=== PATIENT | male | born 1965 | race Two or more races ===

== ENCOUNTER 2016-08-08 10:49 | Emergency (ER) | payer MEDICARE, OTHER ==
[2016-08-08] MEDS ORDERED: SODIUM CHLORIDE 0.9% 1,000 ML IV ONE (10:58)
[2016-08-08 11:14] LABS: Basophils % (A) 1 %; CH 31.8; CHCM 33.7; Eosinophils # (A) 0.1 k/uL (0-0.7); Eosinophils % (A) 2 %; HCT 44.9 % (39.0-53.0); HDW 2.31; HGB 14.9 gm/dL (13.0-17.5); Luc # (Auto) 0.16; Luc % (Auto) 2; Lymphocytes # (A) 1.5 k/uL (1.0-4.8); Lymphocytes % (A) 22 %; MCH 31.5 pg (25.0-35.0); MCHC 33.2 g/dL (31.0-37.0); Mean Platelet Volume 7.3; Monocytes # (A) 0.2 k/uL (0-1.0); Monocytes % (A) 2 %; Neutrophils # (A) 5.1 k/uL (1.3-7.7); Neutrophils % (A) 72 %; RBC 4.72 m/uL (4.30-5.90); RDW 14.3 % (11.5-15.5); WBC 7.1 k/uL (3.8-10.6); WBC (Perox) 7.13
--- NOTE | 2016-08-08 11:18 | ED ---
General Adult HPI - General Chief complaint: Syncope Stated complaint: Fall/Syncope Time Seen by Provider: 08/08/16 10:51 Source: patient, EMS, RN notes reviewed Mode of arrival: EMS Limitations: no limitations - History of Present Illness Initial comments: This a 50-year-old male presents emergency department via EMS for fall. Patient states that he is intoxicated [place] Patient states that he does not remember striking his head though he has some swelling on the right side of his face. Patient states that he does not believe his syncopal episode. Patient denies any chest pain, shortness breath, nausea vomiting, headache, dizziness, neck pain or back pain. EMS was called because bystanders felt that he was having a seizure because he was shaking but states that he normally has shaking daily all day long secondary to psychiatric medications. Patient states that he is at his normal baseline other than being intoxicated. Patient has no upper or lower extremity pain. - Related Data Home Medications Medication Instructions Recorded Confirmed Benztropine Mesylate [Cogentin] 2 mg PO BID 07/21/14 08/08/16 Paliperidone IM [Invega Sustenna] 234 mg INJ Q28D 07/22/14 08/08/16 Cholecalciferol [Vitamin D3] 5,000 unit PO DAILY 08/08/16 08/08/16 Cyanocobalamin (Vitamin B-12) 1,000 mcg PO DAILY 08/08/16 08/08/16 [Vitamin B-12] Ferrous Sulfate [Feosol] 325 mg PO MOWEFR 08/08/16 08/08/16 Folic Acid 1 mg PO DAILY 08/08/16 08/08/16 Mirtazapine 30 mg PO HS 08/08/16 08/08/16 Naltrexone HCl [Revia] 50 mg PO DAILY 08/08/16 08/08/16 Omeprazole 20 mg PO DAILY 08/08/16 08/08/16 Allergies Allergy/AdvReac Type Severity Reaction Status Date / Time No Known Allergies Allergy Verified 08/08/16 11:17 Review of Systems ROS Statement: Those systems with pertinent positive or pertinent negative responses have been documented in the HPI. ROS Other: All systems not noted in ROS Statement are negative. Past Medical History Past Medical History: Pneumonia Additional Past Medical History / Comment(s): 08/10/14 Pt presented to [facility] ER via EMS with having been found near a restaurant confused and SOB with multiple abrasions. Pt is currently alert and oriented to person, place and time. He seems to be a fair hisorian at this time. Pt being admitted with rhabdomyolosis , multiple abrasions and hyponatremial. Other HX: Recent admission to [facility] with altered mental status, RLL pneumonia, tracheobronchitis, acute delirium alcohol withdrawal, metabolic encephalopathy, hypokalemia, hypochoremia, hypomagnesia. Additional hx of alcoholism, lumbar back pain. 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 He is on disablility. He is now living alone in an apartment. He is independent with his ADLs. He gets his medications thru [facility] and is taking them as prescribed. He uses public transportation. Smoking Status: Current some day smoker Past Alcohol Use History: Heavy, Occasional Additional Past Alcohol Use History / Comment(s): Pt states he started smoking a year ago in 2013 and does not smoke daily. He states a pack of cigarettes will last him 2-3 weeks. He states he drinks several days a week and it will be 3 big beers each time. Past Drug Use History: None Reported - Past Family History Mother Family Medical History: Cancer, Chest Pain / Angina General Exam General appearance: alert, in no apparent distress Head exam: Present: atraumatic, normocephalic, normal inspection Eye exam: Present: normal appearance, PERRL, EOMI, periorbital swelling (Mild right superior aspect), periorbital tenderness (Minimal right). Absent: scleral icterus, conjunctival injection ENT exam: Present: normal exam, normal oropharynx, mucous membranes moist Neck exam: Present: normal inspection, full ROM. Absent: tenderness, meningismus, lymphadenopathy Respiratory exam: Present: normal lung sounds bilaterally. Absent: respiratory distress, wheezes, rales, rhonchi, stridor Cardiovascular Exam: Present: normal rhythm, tachycardia, normal heart sounds. Absent: systolic murmur, diastolic murmur, rubs, gallop, clicks GI/Abdominal exam: Present: soft, normal bowel sounds. Absent: distended, tenderness, guarding, rebound, rigid Neurological exam: Present: alert, oriented X3, CN II-XII intact Skin exam: Present: warm, dry, intact, normal color. Absent: rash Course Vital Signs 08/08/16 08/08/16 10:51 11:32 Temperature 97.6 F Pulse Rate 111 H 103 H Respiratory 18 16 Rate Blood Pressure 151/80 129/78 O2 Sat by Pulse 92 L 93 L Oximetry Medical Decision Making - Medical Decision Making 50-year-old male present emergency department for fall call intoxication. Patient's CT does not show any intracranial bleed. Patient lab work essentially unremarkable. Patient does have some chronic changes of the cervical spine but no acute fracture. Patient does have a ride here and which he'll be taken home and accept responsibility of the patient. Chest x-ray shows atelectasis started changes felt not to be infiltrate patient has no fever , no white count and no cough. Return parameters were discussed. - Lab Data Result diagrams: 08/08/16 10:55 08/08/16 10:55 Lab Results 08/08/16 08/08/16 Range/Units 10:55 10:55 WBC 7.1 (3.8-10.6) k/uL RBC 4.72 (4.30-5.90) m/uL Hgb 14.9 (13.0-17.5) gm/dL Hct 44.9 (39.0-53.0) % MCV 95.0 (80.0-100.0) fL MCH 31.5 (25.0-35.0) pg MCHC 33.2 (31.0-37.0) g/dL RDW 14.3 (11.5-15.5) % Plt Count 185 (150-450) k/uL Neutrophils % 72 % Lymphocytes % 22 % Monocytes % 2 % Eosinophils % 2 % Basophils % 1 % Neutrophils # 5.1 (1.3-7.7) k/uL Lymphocytes # 1.5 (1.0-4.8) k/uL Monocytes # 0.2 (0-1.0) k/uL Eosinophils # 0.1 (0-0.7) k/uL Basophils # 0.0 (0-0.2) k/uL Sodium 140 (137-145) mmol/L Potassium 4.2 (3.5-5.1) mmol/L Chloride 102 (98-107) mmol/L Carbon Dioxide 18 L (22-30) mmol/L Anion Gap 20 mmol/L BUN 11 (9-20) mg/dL Creatinine 0.82 (0.66-1.25) mg/dL Est GFR (MDRD) Af Amer >60 (>60 ml/min/1.73 sqM) Est GFR (MDRD) Non-Af >60 (>60 ml/min/1.73 sqM) Glucose 82 (74-99) mg/dL Calcium 8.8 (8.4-10.2) mg/dL Magnesium 2.0 (1.6-2.3) mg/dL Total Bilirubin 0.9 (0.2-1.3) mg/dL AST 64 H (17-59) U/L ALT 32 (21-72) U/L Alkaline Phosphatase 106 (38-126) U/L Creatine Kinase 355 H (55-170) U/L Total Protein 8.1 (6.3-8.2) g/dL Albumin 4.6 (3.5-5.0) g/dL Lipase 178 (23-300) U/L Serum Alcohol 325 mg/dL Disposition Clinical Impression: Alcohol intoxication, Head injury, Fall Disposition: HOME SELF-CARE Condition: Stable Instructions: Alcohol Intoxication (ED) Additional Instructions: Please return to the Emergency Department if symptoms worsen or any other concerns. Time of Disposition: 12:51
[2016-08-08 11:27] LABS: ALT 32 U/L (21-72); AST 64 U/L (17-59); Alkaline Phosphatase 106 U/L (38-126); Anion Gap 20 mmol/L; Blood Urea Nitrogen 11 mg/dL (9-20); Calcium 8.8 mg/dL (8.4-10.2); Carbon Dioxide 18 mmol/L (22-30); Chloride 102 mmol/L (98-107); Creatine Kinase 355 U/L (55-170); Glucose 82 mg/dL (74-99); Non-African American GFR(MDRD) >60 (>60 ml/min/1.73 sqM); Potassium 4.2 mmol/L (3.5-5.1); Sodium 140 mmol/L (137-145); Total Bilirubin 0.9 mg/dL (0.2-1.3); Total Protein 8.1 g/dL (6.3-8.2)
[2016-08-08 11:39] LABS: Alcohol 325 mg/dL
--- NOTE | 2016-08-08 12:20 | XR ---
EXAMINATION TYPE: XR chest 2V DATE OF EXAM: 08/08/2016 12:14 PM COMPARISON: 08/10/2014 HISTORY: 50-year-old male with pain TECHNIQUE: AP and lateral views FINDINGS: The cardiomediastinal silhouette, aorta, and pulmonary vasculature are within normal limits. Some str george atelectasis in the lower lungs. Or patchy opacity along the left heart margin. No pleural effusi on. Old healed right-sided rib fracture deformity. IMPRESSION: Strandy lower lung atelectasis. More patchy opacity along the left heart margin could represent addit ional atelectasis or early infiltrate.
--- NOTE | 2016-08-08 12:44 | CT ---
EXAMINATION TYPE: CT brain radha wo con DATE OF EXAM: 08/08/2016 11:54 AM COMPARISON: NONE HISTORY: fall, contusion over right eye CT DLP: 421.1 mGycm, Automated exposure control for dose reduction was used. CONTRAST: Patient injected with 0 mL of Omnipaque 300. CT of the brain is performed utilizing 3 mm thick sections through the posterior fossa and 3 mm thick sections through the remaining calvarium. Study is performed within 24 hours of arrival to the hospital. No abnormal hyperdensity is present to suggest an acute intracranial hemorrhage. No mass lesion is evident. No acute infarcts are evident. Ventricles and sulci are appropriate for the patient age. Soft tissue swelling is over the right lateral periorbital region. Paranasal sinuses and mastoid air cells within the [id number] are clear. IMPRESSIONS: 1. Normal CT brain. 2. Soft tissue swelling right lateral periorbital region CT cervical spine. COMPARISON: None CT of the cervical spine is performed in the axial plane at 2 mm thick sections. Reconstructed image s in the coronal, and sagittal plane are reviewed on the computer. No acute fractures are evident. Vertebral body alignment is normal. Degenerative disc changes and endplate changes are present at C6-7. Some central disc bulging may be present C2-C3. Tiny left paracentral disc protrusion is present C3-4 . Vertebral body heights are preserved. No spinal canal stenosis is evident. No neural foraminal stenosis is evident. IMPRESSIONS: 1. Degenerative disc changes C6-C7 with loss of disc height and some endplate changes. 2. Central disc bulge C2-3 and tiny left paracentral disc protrusion C3-4
[2016-08-08 13:02] VITALS: BP 142/83; PULSE 100; RESP 20; TEMP 100.5
== END 2016-08-08 13:02 | disposition home or self-care (01) ==
LOC: EC 10:49
DX: S09.90XA Unspecified injury of head, initial encounter (principal); F10.129 Alcohol abuse with intoxication, unspecified; R00.0 Tachycardia, unspecified; J98.11 Atelectasis; M50.21 Other cervical disc displacement, high cervical region; F25.9 Schizoaffective disorder, unspecified; F17.210 Nicotine dependence, cigarettes, uncomplicated; Z79.891 Long term (current) use of opiate analgesic; Z79.899 Other long term (current) drug therapy; Z87.39 Personal history of other diseases of the musculoskeletal system and connective tissue; W01.0XXA Fall on same level from slipping, tripping and stumbling without subsequent striking against object, initial encounter; Y92.410 Unspecified street and highway as the place of occurrence of the external cause; Y93.01 Activity, walking, marching and hiking
CPT/HCPCS: 36415; 70450; 71020; 72125; 80053; 80320; 82550; 83690; 83735; 85025; 96360; 99285

== ENCOUNTER 2016-10-09 12:10 | Emergency (ER) | payer MEDICARE, OTHER ==
[2016-10-09 12:15] VITALS: TEMP 97.5
[2016-10-09] MEDS ORDERED: SODIUM CHLORIDE 0.9% 1,000 ML IV STA (12:16)
[2016-10-09 12:32] LABS: Basophils % (A) 0 %; CH 33.2; CHCM 34.9; Eosinophils % (A) 1 %; HCT 45.1 % (39.0-53.0); HDW 2.25; HGB 15.6 gm/dL (13.0-17.5); Luc % (Auto) 1; Lymphocytes # (A) 1.2 k/uL (1.0-4.8); Lymphocytes % (A) 17 %; MCH 32.9 pg (25.0-35.0); MCHC 34.5 g/dL (31.0-37.0); MCV 95.5 fL (80.0-100.0); Mean Platelet Volume 7.4; Monocytes # (A) 0.3 k/uL (0-1.0); Monocytes % (A) 4 %; Neutrophils # (A) 5.7 k/uL (1.3-7.7); Neutrophils % (A) 77 %; RBC 4.72 m/uL (4.30-5.90); RDW 14.2 % (11.5-15.5); WBC 7.3 k/uL (3.8-10.6); WBC (Perox) 6.66
[2016-10-09 12:53] LABS: ALT 31 U/L (21-72); AST 42 U/L (17-59); Alkaline Phosphatase 82 U/L (38-126); Anion Gap 17 mmol/L; Blood Urea Nitrogen 5 mg/dL (9-20); Calcium 8.6 mg/dL (8.4-10.2); Carbon Dioxide 16 mmol/L (22-30); Chloride 103 mmol/L (98-107); Glucose 84 mg/dL (74-99); Non-African American GFR(MDRD) >60 (>60 ml/min/1.73 sqM); Potassium 3.9 mmol/L (3.5-5.1); Sodium 136 mmol/L (137-145); Total Protein 7.5 g/dL (6.3-8.2)
[2016-10-09 12:58] LABS: Alcohol 287 mg/dL
[2016-10-09 13:01] LABS: Ammonia <9 umol/L (<30)
[2016-10-09] MEDS ORDERED: SODIUM CHLORIDE 0.9% 1,000 ML with MVI, ADULT NO.4 WITH VIT K 10 ML, THIAMINE 100 MG, F... IV ONE ×4 (13:15)
[2016-10-09 14:28] VITALS: RESP 18
--- NOTE | 2016-10-09 14:40 | ED ---
General Adult HPI - General Chief complaint: Seizure Stated complaint: ETOH Time Seen by Provider: 10/09/16 12:10 Source: patient, EMS, RN notes reviewed Mode of arrival: EMS Limitations: no limitations - History of Present Illness Initial comments: 51-year-old male presenting from home with alcohol intoxication and tremor. According to the patient's roommate the patient was found on the floor in the living room with a fine tremor. He was alert. He admitted to drinking 96 ounces of beer. Patient is a known alcoholic. EMS denies any specific trauma. Stating that the roommate believes he was lying on the floor and did not fall. Patient denies any specific complaints, denies chest pain or shortness of breath, denies abdominal pain nausea or vomiting. Denies fever or chills. Patient also has history of seizure disorder which may be related to alcohol withdrawal but is not currently on any medications. - Related Data Home Medications Medication Instructions Recorded Confirmed Benztropine Mesylate [Cogentin] 2 mg PO BID 07/21/14 10/09/16 Paliperidone IM [Invega Sustenna] 234 mg INJ Q28D 07/22/14 10/09/16 Cholecalciferol [Vitamin D3] 5,000 unit PO DAILY 08/08/16 10/09/16 Cyanocobalamin (Vitamin B-12) 1,000 mcg PO DAILY 08/08/16 10/09/16 [Vitamin B-12] Ferrous Sulfate [Feosol] 325 mg PO MOWEFR 08/08/16 10/09/16 Folic Acid 1 mg PO DAILY 08/08/16 10/09/16 Mirtazapine 30 mg PO HS 08/08/16 10/09/16 Naltrexone HCl [Revia] 50 mg PO DAILY 08/08/16 10/09/16 Omeprazole 20 mg PO DAILY 08/08/16 10/09/16 Cyanocobalamin [Vitamin B-12 1,000 mcg INJ Q7D 10/09/16 10/09/16 Injection] Allergies Allergy/AdvReac Type Severity Reaction Status Date / Time No Known Allergies Allergy Verified 10/09/16 12:37 Review of Systems ROS Statement: Those systems with pertinent positive or pertinent negative responses have been documented in the HPI. ROS Other: All systems not noted in ROS Statement are negative. Respiratory: Denies: dyspnea Cardiovascular: Denies: chest pain, palpitations Gastrointestinal: Denies: abdominal pain, nausea, vomiting Musculoskeletal: Denies: back pain Neurological: Denies: headache Past Medical History Past Medical History: Pneumonia Additional Past Medical History / Comment(s): 08/10/14 Pt presented to [facility] ER via EMS with having been found near a restaurant confused and SOB with multiple abrasions. Pt is currently alert and oriented to person, place and time. He seems to be a fair hisorian at this time. Pt being admitted with rhabdomyolosis , multiple abrasions and hyponatremial. Other HX: Recent admission to [facility] with altered mental status, RLL pneumonia, tracheobronchitis, acute delirium alcohol withdrawal, metabolic encephalopathy, hypokalemia, hypochoremia, hypomagnesia. Additional hx of alcoholism, lumbar back pain. History of Any Multi-Drug Resistant Organisms: None Reported Past Surgical History: No Surgical Hx Reported, Unable to Obtain, Orthopedic Surgery Additional Past Surgical History / Comment(s): left leg surgery for fracture repair Past Anesthesia/Blood Transfusion Reactions: No Reported Reaction Past Psychological History: Bipolar, Schizoaffective Disorder Smoking Status: Current some day smoker Past Alcohol Use History: Heavy, Occasional Past Drug Use History: None Reported - Past Family History Mother Family Medical History: Cancer, Chest Pain / Angina General Exam Limitations: no limitations General appearance: alert, in no apparent distress, appears intoxicated Head exam: Present: atraumatic, normocephalic Eye exam: Present: normal appearance, PERRL, EOMI ENT exam: Present: normal exam, mucous membranes dry Neck exam: Present: normal inspection, full ROM. Absent: tenderness, meningismus Respiratory exam: Present: normal lung sounds bilaterally. Absent: respiratory distress Cardiovascular Exam: Present: regular rate, normal rhythm GI/Abdominal exam: Present: soft. Absent: distended, tenderness Rectal exam: Present: deferred Extremities exam: Present: normal inspection, normal capillary refill Back exam: Present: normal inspection Neurological exam: Present: alert, oriented X3, CN II-XII intact. Absent: motor sensory deficit Psychiatric exam: Present: flat affect Skin exam: Present: warm, dry Course Vital Signs 10/09/16 10/09/16 10/09/16 12:11 12:52 13:55 Temperature 97.5 F L Pulse Rate 85 76 98 Respiratory 18 16 16 Rate Blood Pressure 142/92 119/63 115/65 O2 Sat by Pulse 95 96 96 Oximetry 10/09/16 10/09/16 10/09/16 14:26 15:56 18:00 Temperature Pulse Rate 96 89 101 H Respiratory 18 18 18 Rate Blood Pressure 119/60 121/66 158/77 O2 Sat by Pulse 95 97 98 Oximetry - Reevaluation(s) Reevaluation #1: 10/09/16 14:39 Patient is medically stable, currently being observed in the emergency department with acute alcohol intoxication. Reevaluation #2: 10/09/16 18:24 Patient is reevaluated at 1824. Patient is clinically sober. He is alert and oriented 3. Patient has eaten a meal while in the emergency department. He is in the toilet without difficulty. No ataxia. Medical Decision Making - Medical Decision Making 51-year-old male presenting with acute alcohol intoxication. Patient is drinking 96 ounces beer. He is a daily drinker. Patient was found on his living room floor. He denies any trauma. There was some tremor activity but the patient does have a history of left upper shoulder tremor secondary to Cogentin which he takes for his schizophrenia. Patient is reevaluated several times while in the emergency department. He is alert and oriented. At 6:20 PM the patient is clinically sober. Case was discussed with his guardian who does make his medical decisions. He is able to be discharged home to self-care. He does live alone and is independent. Laboratory studies are reviewed and are significant for mild lactic acidosis, and mild anion gap acidosis likely secondary to lactic acidosis. Patient receives IV hydration including thiamine and multiple vitamin. All the labs are reviewed and are unremarkable. At the time of evaluation patient's clinically sober. He has no complaints. He is neurologically intact. He has eaten and ambulated in the emergency department. Diagnosis: Acute alcohol intoxication Disposition: Home with outpatient primary care follow-up. - Lab Data Result diagrams: 10/09/16 12:23 10/09/16 12:23 Lab Results 10/09/16 10/09/16 10/09/16 Range/Units 12:23 12:23 12:23 WBC 7.3 (3.8-10.6) k/uL RBC 4.72 (4.30-5.90) m/uL Hgb 15.6 (13.0-17.5) gm/dL Hct 45.1 (39.0-53.0) % MCV 95.5 (80.0-100.0) fL MCH 32.9 (25.0-35.0) pg MCHC 34.5 (31.0-37.0) g/dL RDW 14.2 (11.5-15.5) % Plt Count 193 (150-450) k/uL Neutrophils % 77 % Lymphocytes % 17 % Monocytes % 4 % Eosinophils % 1 % Basophils % 0 % Neutrophils # 5.7 (1.3-7.7) k/uL Lymphocytes # 1.2 (1.0-4.8) k/uL Monocytes # 0.3 (0-1.0) k/uL Eosinophils # 0.0 (0-0.7) k/uL Basophils # 0.0 (0-0.2) k/uL Sodium 136 L (137-145) mmol/L Potassium 3.9 (3.5-5.1) mmol/L Chloride 103 (98-107) mmol/L Carbon Dioxide 16 L (22-30) mmol/L Anion Gap 17 mmol/L BUN 5 L (9-20) mg/dL Creatinine 0.71 (0.66-1.25) mg/dL Est GFR (MDRD) Af Amer >60 (>60 ml/min/1.73 sqM) Est GFR (MDRD) Non-Af >60 (>60 ml/min/1.73 sqM) Glucose 84 (74-99) mg/dL Plasma Lactic Acid John 2.9 H* (0.7-2.0) mmol/L Calcium 8.6 (8.4-10.2) mg/dL Total Bilirubin 1.0 (0.2-1.3) mg/dL AST 42 (17-59) U/L ALT 31 (21-72) U/L Alkaline Phosphatase 82 (38-126) U/L Ammonia <9 (<30) umol/L Total Protein 7.5 (6.3-8.2) g/dL Albumin 4.5 (3.5-5.0) g/dL Lipase 142 (23-300) U/L Serum Alcohol 287 mg/dL Disposition Clinical Impression: Alcohol abuse with intoxication Disposition: HOME SELF-CARE Condition: Good Instructions: Alcohol Intoxication (ED) Additional Instructions: Patient is instructed to follow up with primary care physician within the next several days. He can return to the emergency department with signs of alcohol withdrawal. Referrals: None,Stated [Primary Care Provider] - 1-2 days Time of Disposition: 18:28
[2016-10-09 19:09] VITALS: BP 142/88; PULSE 114
== END 2016-10-09 19:08 | disposition home or self-care (01) ==
LOC: EC 12:10
DX: F10.129 Alcohol abuse with intoxication, unspecified (principal); G40.909 Epilepsy, unspecified, not intractable, without status epilepticus; F25.9 Schizoaffective disorder, unspecified; F31.9 Bipolar disorder, unspecified; F17.200 Nicotine dependence, unspecified, uncomplicated; Z79.899 Other long term (current) drug therapy
CPT/HCPCS: 36415; 80053; 82140; 83605; 83690; 85025; 80320; 99284; 96365; 96366 ×4; J3411

== ENCOUNTER → 2018-07-08 | Outpatient (CLI) | payer MEDICARE, OTHER | END | disposition home or self-care (01) | LOC: LABWHC1 11:00 | PROVIDERS: ATTEND Physician Assistant Medical | DX: R74.8 Abnormal levels of other serum enzymes (principal) | CPT/HCPCS: 36415 ==

== ENCOUNTER → 2018-09-11 | Outpatient (CLI) | payer MEDICARE, OTHER | LOC: LABWHC1 14:33 | PROVIDERS: ATTEND Psychiatry & Neurology Psychiatry | DX: Z51.81 Encounter for therapeutic drug level monitoring (principal); Z79.899 Other long term (current) drug therapy | CPT/HCPCS: 36415; 80299; 84146 ==